=== PATIENT | female | born 1935 | race Caucasian/White ===

== ENCOUNTER 2017-06-26 06:53 | Day surgery (SDC) | payer MEDICARE ==
[2017-06-26] VITALS (11 sets, daily range): BP systolic 124–166; BP diastolic 39–65
[~2017-06-26] VITALS: Ht 162.6 cm; Wt 79.6 kg
[2017-06-26] MEDS ORDERED: normal saline 1000ml 1,000 ML IV SCH (07:20)
[2017-06-26] MEDS ORDERED: nitroGLYCERIN 0.4mg SUBLingual tab SL PRN (07:20)
[2017-06-26] MEDS ORDERED: LORazepam 0.5 MG tablet PO PRN (07:20)
[2017-06-26] MEDS ORDERED: diphenhydrAMINE 25mg capsule PO PRN (07:20)
[2017-06-26 07:37] LABS: BASOPHILS % (AUTO) 0.7 % (0-1); EOSINOPHILS # (AUTO) 0.2 X10'3 (0-0.9); EOSINOPHILS % (AUTO) 3.4 % (0-6); HEMATOCRIT 43.8 % (35.0-45.0); HEMOGLOBIN 14.4 g/dl (12.0-16.0); LYMPHOCYTES # (AUTO) 2.1 X10'3 (1.1-4.8); LYMPHOCYTES % (AUTO) 32.7 % (21-51); MEAN CORPUSCULAR HEMOGLOBIN 31.4 PG (27.0-31.0); MEAN CORPUSCULAR HGB CONC 32.9 % (33.0-36.5); MEAN CORPUSCULAR VOLUME 95.4 FL (78-98); MEAN PLATELET VOLUME 7.5 FL (7.4-10.4); MONOCYTES # (AUTO) 0.5 X10'3 (0-0.9); MONOCYTES % (AUTO) 7.6 % (2-12); NEUTROPHILS # (AUTO) 3.6 X10'3 (1.8-7.7); NEUTROPHILS % (AUTO) 55.6 % (42-75); PLATELET COUNT 269 X10'3 (140-440); RED BLOOD COUNT 4.59 X10'6 (4.20-5.60); RED CELL DISTRIBUTION WIDTH 14.7 % (11.5-14.5); WHITE BLOOD COUNT 6.4 X10'3 (4.5-11.0)
[2017-06-26 07:46] LABS: ALBUMIN 3.8 G/DL (3.4-5.0); ANION GAP 8 (8-16); BLOOD UREA NITROGEN 21 MG/DL (7-18); BUN/CREATININE RATIO 27.6 (6.6-38.0); CALCIUM 9.6 MG/DL (8.5-10.1); CHLORIDE 106 MMOL/L (99-107); CREATININE 0.76 MG/DL (0.40-0.90); GLUCOSE 95 MG/DL (70-104); POTASSIUM 3.9 MMOL/L (3.5-5.1); SODIUM 144 MMOL/L (135-145); TOTAL CARBON DIOXIDE 30.3 MMOL/L (24-32); eGFR 73 ML/MIN
[2017-06-26] MEDS ORDERED: GARL1TAB2 PO (07:47)
[2017-06-26] MEDS ORDERED: ERGO400C PO (07:47)
[2017-06-26] MEDS ORDERED: B2/V1TAB PO (07:47)
[2017-06-26] MEDS ORDERED: CALC200T PO (07:47)
[2017-06-26] MEDS ORDERED: GINK60TA2 PO (07:47)
[2017-06-26] MEDS ORDERED: UBID1CAP59 PO (07:47)
[2017-06-26] MEDS ORDERED: VITA-268 PO (07:47)
[2017-06-26] MEDS ORDERED: ASPI-1265 PO (07:47)
[2017-06-26] MEDS ORDERED: CETI10CA PO (07:47)
[2017-06-26] MEDS ORDERED: Zicam (07:47)
[2017-06-26] MEDS ORDERED: MULT-1074 PO (07:47)
[2017-06-26 07:48] LABS: INR 0.9 INR; PARTIAL THROMBOPLASTIN TIME 27 SECONDS (22-32); PROTHROMBIN TIME 9.6 SECONDS (9.0-12.0)
[2017-06-26] MEDS ORDERED: FLU VACC QS2017-18 36MOS UP/PF 60 MCG/0.5 ML SYRINGE IMVAC ONE (08:15)
[2017-06-26] MEDS ORDERED: LIDOcaine 1%/PF (10mg/ml) 5ml vial ONE (08:52)
[2017-06-26] MEDS ORDERED: iohexol 350 MG/ML 50ML vial IV ONE (08:52)
[2017-06-26] MEDS ORDERED: fentaNYL/PF 50MCG/1 ML 2ML syringe ONE (08:52)
[2017-06-26] MEDS ORDERED: IOHEXOL 350 MG/ML 150 ML injection IV ONE (08:52)
[2017-06-26] MEDS ORDERED: midazolam 2 mg/2 ml injection ONE (08:52)
[2017-06-26] MEDS ORDERED: ondansetron/PF 4mg/2ml inj IV PRN (10:30)
[2017-06-26] MEDS ORDERED: proCHLORperazine 10 MG/2 ml inj IV PRN (10:30)
[2017-06-26] MEDS ORDERED: HYDROcodone/acetaminophen 5mg/325mg tablet PO PRN (10:30)
[2017-06-26] MEDS ORDERED: HYDROcodone/acetaminophen 10/325mg tab PO PRN (10:30)
[2017-06-26] MEDS ORDERED: OXAZEpam 15mg capsule PO PRN (10:30)
== END 2017-06-26 16:00 | disposition home or self-care (01) ==
LOC: SSTAY O 06:53
PROVIDERS: ATTEND Internal Medicine Cardiovascular Disease
DX: I25.10 Atherosclerotic heart disease of native coronary artery without angina pectoris (principal); Z88.0 Allergy status to penicillin; Z79.01 Long term (current) use of anticoagulants
CPT/HCPCS: 36415; 71046; 80048; 85025; 85610; 85730; 93458; 99152; 99153; A6257; C1769; J2001; J2250; J3010; J7030; Q9967; A4620

== ENCOUNTER 2022-03-13 09:06 | Day surgery (SDC) | payer MEDICARE ==
[~2022-03-13] VITALS: Ht 162.6 cm; Wt 72.9 kg
[~2022-03-13 09:06] MED LIST: ASPI-1265 PO; B2/V1TAB PO; CALC200T PO; CETI10CA PO; ERGO400C PO; GARL1TAB2 PO; GINK60TA2 PO; MULT-1074 PO; UBID1CAP59 PO; VITA-268 PO; Zicam
[2022-03-13 09:30] VITALS: BP 138/72
[2022-03-13] MEDS ORDERED: CAND8TAB14 PO (09:39)
[2022-03-13] MEDS ORDERED: FURO20TA4 PO (09:39)
[2022-03-13] MEDS ORDERED: LIDOcaine 1% 30ml preserv. free vial SQ STA (10:28)
--- NOTE | 2022-03-13 10:50 | NUR ---
Angio RN called and said they are running late and that the patient's procedure may not be until [id number]. Explained this to patient and patient chose to reschedule the procedure.
[2022-03-20] MEDS ORDERED: SOLI5TAB2 PO (09:22)
== END 2022-03-13 10:50 | disposition home or self-care (01) ==
LOC: SSTAY O 09:06
PROVIDERS: ATTEND Specialist
DX: E04.2 Nontoxic multinodular goiter (principal); Z53.8 Procedure and treatment not carried out for other reasons
CPT/HCPCS: 88173